=== PATIENT | male | born 1960 | race Caucasian/White ===

== ENCOUNTER 2017-05-18 21:51 | Emergency (ER) | payer OTHER | END 2017-05-19 02:30 | disposition home or self-care (01) | LOC: ER 21:51 | DX: M79.1 Myalgia (principal); V44.1XXA Car passenger injured in collision with heavy transport vehicle or bus in nontraffic accident, initial encounter; Y92.410 Unspecified street and highway as the place of occurrence of the external cause; M51.36 Other intervertebral disc degeneration, lumbar region; M99.53 Intervertebral disc stenosis of neural canal of lumbar region; F17.210 Nicotine dependence, cigarettes, uncomplicated; Z79.891 Long term (current) use of opiate analgesic | CPT/HCPCS: 71250; 72128; 72131; 73030; 96372; 99284; 99284-25 ==